=== PATIENT | male | born 1970 | race Caucasian/White ===

== ENCOUNTER 2023-10-09 16:04 | Emergency (ER) | payer SELFPAY | END 2023-10-09 19:26 | disposition home or self-care (01) | LOC: ERS 16:04 | DX: Z20.822 Contact with and (suspected) exposure to COVID-19 (principal); I10 Essential (primary) hypertension; F17.210 Nicotine dependence, cigarettes, uncomplicated; Z79.899 Other long term (current) drug therapy | CPT/HCPCS: 87635; 99283 ==

== ENCOUNTER 2023-11-01 05:39 | Emergency (ER) | payer SELFPAY ==
[2023-11-01] MEDS ORDERED: Aspirin 325 MG TAB ONE (06:05)
[2023-11-01] MEDS ORDERED: hydrALAZINE 20 MG/ML VIAL ONE (06:06)
[2023-11-01 06:14] LABS: #Basophils 0.1 thou/uL (0.0-0.2); #Eosinphils 0.2 thou/uL (0.0-0.7); #Monocytes 0.8 thou/uL (0.11-0.59); #Neutrophils 3.7 thou/uL (1.40-6.50); %Basophils 0.7 % (0.0-1.0); %Eosinophils 2.4 % (0.0-10.0); %Lymphocytes 29.9 % (21.0-51.0); %Monocytes 11.3 % (0.0-10.0); %Neutrophils 55.3 % (42.0-75.0); Hematocrit 41.4 % (42.0-52.0); Hemoglobin 14.3 g/dL (14.0-18.0); Mean Corpuscular HGB CONC 34.5 g/dL (32.0-36.0); Mean Corpuscular Hemoglobin 32.6 pg (27.0-31.0); Mean Corpuscular Volume 94.5 fl (78.0-98.0); Mean Platelet Volume 9.6 fL (7.4-10.4); Platelet Count 287 10x3/uL (130-400); RBC Distribution Width 12.2 % (11.5-14.5); Red Blood Cell (RBC) Count 4.38 mill/uL (4.70-6.10); White Blood Cell (WBC) Count 6.7 10x3/uL (4.8-10.8)
[2023-11-01 06:38] LABS: ALT (SGPT) 21 U/L (8-55); AST (SGOT) 22 U/L (5-34); Albumin 4.3 g/dL (3.5-5.0); Alkaline Phosphatase 61 U/L (40-110); Anion Gap 11 mmol/L (10-20); BUN (Urea Nitrogen) 13 mg/dL (8.4-25.7); Bilirubin, Total 1.7 mg/dL (0.2-1.2); Calc. Creatinine Clearance 0 mL/min (70-130); Calcium 9.3 mg/dL (7.8-10.44); Carbon Dioxide 26 mmol/L (22-29); Chloride 106 mmol/L (98-107); Estimated GFR 86; Globulin 2.7 g/dL (2.4-3.5); Glucose 111 mg/dL (70-105); Magnesium 1.9 mg/dL (1.6-2.6); Potassium 3.3 mmol/L (3.5-5.1); Sodium 140 mmol/L (136-145)
[2023-11-01 06:42] LABS: Troponin I Less than 0.010 ng/mL (< 0.028)
[2023-11-01] MEDS ORDERED: Potassium Chloride 20 MEQ TAB ONE (06:49)
== END 2023-11-01 06:55 | disposition home or self-care (01) ==
LOC: ERS 05:39
DX: I10 Essential (primary) hypertension (principal); F17.290 Nicotine dependence, other tobacco product, uncomplicated; Z55.6 Problems related to health literacy; Z86.19 Personal history of other infectious and parasitic diseases
CPT/HCPCS: 71045; 80053; 83735; 84484; 85025; 93005; 96374; J0360

== ENCOUNTER 2023-11-01 17:25 | Emergency (ER) | payer SELFPAY ==
[2023-11-01 19:36] LABS: Influenza A by NAA Not Detected (NotDetected); Influenza B by NAA Not Detected (NotDetected); SARS-CoV-2 NAA Rapid Test DETECTED (NotDetected)
[2023-11-01] MEDS ORDERED: Ibuprofen 200 MG TAB ONE (19:52)
[2023-11-01] MEDS ORDERED: Acetaminophen 500 MG TAB ONE (19:52)
== END 2023-11-01 20:42 | disposition home or self-care (01) ==
LOC: ERS 17:25
DX: U07.1 COVID-19 (principal); I10 Essential (primary) hypertension; F17.290 Nicotine dependence, other tobacco product, uncomplicated; Z55.6 Problems related to health literacy
CPT/HCPCS: 99283